=== PATIENT | female | born 1950 | race Caucasian/White ===

== ENCOUNTER 2016-12-07 14:37 | Emergency (ER) | payer OTHER ==
[~2016-12-07] VITALS: Ht 160 cm; Wt 41.4 kg
[2016-12-07 15:47] VITALS: BP 158/88
--- NOTE | 2016-12-07 16:52 | NUR ---
Patient ambulated to bed 07. Addendum: 12/07/16 at 1734 by [facility] Patient went to CT via [address]
--- NOTE | 2016-12-07 17:00 | NUR ---
Dr. Hendrickson evaluating patient at bedside.
--- NOTE | 2016-12-07 17:03 | NUR ---
PATIENT PRESENTS TO ED WITH C/O DIZZINESS AND WEAK NEAR SYNCOPE X TODAY;HX OF PET SCAN, CAT SCAN , MRI X 3 YRS. DENIES N/V/D; SKIN IS PINK/WARM/DRY; AAOX4 WITH EVEN AND STEADY GAIT; LUNGS CLEAR BL; HR EVEN AND REGULAR; PT DENIES ANY FEVER, CP, SOB, OR COUGH AT THIS TIME; PATIENT STATES PAIN OF 0/10 AT THIS TIME; VSS; PATIENT POSITIONED FOR COMFORT; HOB ELEVATED; BEDRAILS UP X2; BED DOWN. ALL MONMITORS IN PLACED.
[2016-12-07] MEDS ORDERED: NACL 0.9% 1,000 ML IV ONE (17:12)
--- NOTE | 2016-12-07 17:35 | NUR ---
XRAY at bedside.
--- NOTE | 2016-12-07 18:34 | NUR ---
Patient going to CT via wheelchair per tech.
--- NOTE | 2016-12-07 18:47 | NUR ---
Patient back from CT via wheelchair per tech.
--- NOTE | 2016-12-07 19:43 | NUR ---
Patient discharged with v/s stable. Written and verbal after care instructions given and explained. Patient alert, oriented and verbalized understanding of instructions. Ambulatory with steady gait. All questions addressed prior to discharge. ID band removed. Patient advised to follow up with PMD. Rx of ENSURE PLUS LIQUID given. Patient educated on indication of medication including possible reaction and side effects. Opportunity to ask questions provided and answered.
[2016-12-07 19:44] VITALS: BP 136/84
== END 2016-12-07 19:43 | disposition home or self-care (01) ==
LOC: MED 14:37
DX: R41.3 Other amnesia (principal); R53.1 Weakness; Z88.0 Allergy status to penicillin; Z88.1 Allergy status to other antibiotic agents; Z88.2 Allergy status to sulfonamides; Z88.8 Allergy status to other drugs, medicaments and biological substances
CPT/HCPCS: 36415; 70450; 71010; 80053; 80076; 80305; 81001; 82948; 85025; 85610; 85730; 93005; 96360; 96361; 99285; G0482; J7030; Q0092